=== PATIENT | female | born 1990 | race African-American/Black ===

== ENCOUNTER → 2017-11-26 | Emergency (ER) | payer OTHER ==
[2017-11-26 23:06] LABS: URINE BLOOD (Dip) POC Trace-lysed (NEGATIVE); URINE GLUCOSE (Dip) POC Negative (NEGATIVE); URINE KETONES (Dip) POC Negative (NEGATIVE); URINE LEUKOCYTE EST (Dip) POC Negative (NEGATIVE); URINE NITRITE (Dip) POC Negative (NEGATIVE); URINE TOTAL PROTEIN POC Trace (NEGATIVE)
[2017-11-26] MEDS: SOD CHLORIDE 0.9% 1,000 ML IV (23:09)
== END | disposition home or self-care (01) ==
LOC: E/R 21:46
DX: F12.10 Cannabis abuse, uncomplicated (principal)
CPT/HCPCS: 81003; 81025; 99284-25